=== PATIENT | male | born 1940 | race Caucasian/White ===

== ENCOUNTER → 2017-07-23 11:23 | Outpatient (CLI) | payer MEDICARE, SELFPAY ==
--- NOTE | 2017-07-23 11:23 | DT_ITS ---
This patient was seen during an EMR downtime July 20, 2017 - July 27, 2017. This patient may have a combination of paper and electronic documentation or all paper documentation. All documentation is viewable within the e-chart portion of Tier 3 for each patient visit.
[2017-07-28 05:29] LABS: ALB/GLOB Ratio 0.8 RATIO (0.9-2.4); AST(SGOT) 16 U/L (15-37); Alanine Aminotransfer ALT/SGPT 18 U/L (16-61); Albumin, Serum 3.3 g/dL (3.2-5.0); Alkaline Phosphatase 78 U/L (45-117); BUN 26 mg/dL (7-18); BUN/Creat Ratio 15.7 RATIO (10-20); Calcium,Total 8.8 mg/dL (8.5-10.1); Creatinine, Serum 1.66 mg/dL (0.70-1.30); EST Glomerular Filtration Rate 43 mL/min (>60); Est Glom Filt Rate - Afr Amer 52 mL/min (>60); Globulin 4.1 g/dL (2.2-4.2); Glucose 102 mg/dL (74-106); Phosphorus 2.7 mg/dL (2.5-4.9); Protein, Total 7.4 g/dL (6.4-8.2); Uric Acid 7.2 mg/dL (3.5-7.2)
[2017-07-28 05:30] LABS: Thyroid Stim Hormone (TSH) 1.77 uIU/mL (0.358-3.74)
[2017-07-28 06:09] LABS: Hematocrit 47.6 % (40-54); Mean Corp Hgb Conc 31.5 g/gl (32-36); Mean Corpuscular Hgb 30.5 pg (27.0-32.0); Mean Corpuscular Volume 96.7 fL (80-94); Red Blood Count 4.92 M/mm3 (4.6-6.2); White Blood Count 13.1 K/mm3 (4.4-11.0)
[2017-07-28 06:10] LABS: Absolute Lymphocyte Count 2.18 X10^3/ul (0.83-4.51); Absolute Neutrophil Count 9.5 X10^3/uL (2.0-7.7); Basophil# 0.03 X10^3/uL; Basophil% 0.2 % (0-1); Eosinophil# 0.39 X10^3/uL; Lymphocyte # 2.18 X10^3/ul (4.0); Lymphocyte % 16.6 % (19-41); Mean Platelet Vol. 10.3 fl (6.2-12.0); Monocyte# 0.99 X10^3/uL; Monocyte% 7.6 % (0-10); Neutrophil # 9.47 X10^3/uL (2.7-7.7); Neutrophil % 72.2 % (47-70); POSITIVE COUNT NO; POSITIVE DIFFERENTIAL NO; POSITIVE MORPHOLOGY NO; Platelet Count 268 K/mm3 (150-450); RBC Distribution Width CV 15.3 % (11.6-14.6); RBC Distribution Width SD 54.2 fl (35.1-43.9)
[2017-07-28 06:15] LABS: Anion Gap 9 (5-15); Chloride 103 mmol/L (98-107); Potassium 4.5 mmol/L (3.5-5.1); Sodium Level 142 mmol/L (136-145)
== END ==
PROVIDERS: PCP Family Medicine; Visit Provider Internal Medicine Nephrology
DX: N18.3 Chronic kidney disease, stage 3 (moderate) (principal)
CPT/HCPCS: 36415; 80053; 80061; 83970; 84100; 84443; 84550; 85025

== ENCOUNTER → 2018-02-01 14:06 | Outpatient (CLI) | payer MEDICARE, SELFPAY ==
[2018-02-01 15:23] LABS: Albumin, Serum 3.7 g/dL (3.2-5.0); BUN 33 mg/dL (7-18); BUN/Creat Ratio 23.1 RATIO (10-20); Calcium,Total 8.9 mg/dL (8.5-10.1); Chloride 105 mmol/L (98-107); Creatinine, Serum 1.43 mg/dL (0.70-1.30); EST Glomerular Filtration Rate 51 mL/min (>60); Est Glom Filt Rate - Afr Amer 62 mL/min (>60); Glucose 96 mg/dL (74-106); Phosphorus 3.7 mg/dL (2.5-4.9); Potassium 4.3 mmol/L (3.5-5.1); Sodium Level 139 mmol/L (136-145)
--- OUTSIDE RECORDS SUMMARY | 2018-05-06 06:04 | XMS RPT_ITS ---
:1940 Author Organization OHIP Care Team Providers Name Role Phone NUSRAT MCFADDEN Attending Unavailable MICHELLE THAO, DR. MARCELINO Gutierrez Primary Care Unavailable YUMIKO LICEA MD Attending Unavailable MICHELLE THAO, DR. MARCELINO Gutierrez Primary Care Unavailable ABDULAZIZ ESTRADA MD Attending Unavailable MICHELLE THAO, DR. MARCELINO Gutierrez Primary Care Unavailable ABDULAZIZ ESTRADA MD Attending Unavailable MICHELLE THAO, DR. MARCELINO Gutierrez Primary Care Unavailable Deb Armstrong Attending Unavailable Deb Armstrong Attending Unavailable PROBLEMS PROBLEMS DATE TYPE CONDITION / CODE ATTENDING STATUS SOURCE 08/12/2017 Unknown N18.3 - Chronic Deb Armstrong Active [place] kidney disease, [facility] stage 3 Hospital (moderate) / Repository N18.3(ICD-10) PROCEDURES PROCEDURES No Procedure Records FoundRESULTS RESULTS RENAL PROFILE Collected: 02/01/2018 Status: F Source: KAMALJIT 2:[address] [facility] REPOSITORY TYPE CODE TESTS RESULT OUT OF RANGE REFERENCE UNITS LAB L501.0100 74-106 mg/dL Normal GLU 96 Result Comment: Please note revised GLUCOSE reference range effective 2017. LAB L501.1000 7-18 mg/dL High BUN 33 LAB L501.1100 0.70-1.30 mg/dL High CREAT,SERUM 1.43 Result Comment: The validity of the calculated GFR AND GFRAA in patients over 70 years has not been determined. Clinical correlation is essential. LAB L501.1110 >60 mL/min Low EST GFR 51 Result Comment: Non- GFR Calc LAB L501.1115 >60 mL/min Normal EST GFR - AA 62 Result Comment: GFR Calc LAB L501.1300 10-20 RATIO High BUN/CRE 23.1 LAB L501.1800 3.2-5.0 g/dL Normal ALB 3.7 LAB L501.2200 8.5-10.1 mg/dL CA Normal 8.9 LAB L501.2300 2.5-4.9 mg/dL Normal PHOS 3.7 LAB L501.5300 136-145 mmol/L NA Normal 139 LAB L501.5600 3.5-5.1 mmol/L K Normal 4.3 LAB L501.5900 98-107 mmol/L CL Normal 105 LAB L501.6100 21.0-32.0 mmol/L Normal CO2 27.0 Performed By: #### L500.3600 #### [facility] [address] [place], [address] DOWNTIME REPORT Observed: 08/06/2017 Status: F Source: KAMALJIT 1:[address] [facility] REPOSITORY [facility] Medical Records Department [address] [place] [address] Downtime Report MR#: [id number] Acct: [id number] Name: MANDEEPMICHAEL Rep #: [id number] : 1940 77 From: Marcelino Salamanca PCP: Marcelino Martinez MD Status: REG CLI This patient was seen during an EMR downtime July 20, 2017 - July 27, 2017. This patient may have a combination of paper and electronic documentation or all paper documentation. All documentation is viewable within the e-chart portion of [employer] for each patient visit. CBC W/DIFF, AUTOMATED Collected: 07/23/2017 Status: F Source: KAMALJTI 11:[address] [facility] REPOSITORY Order Comment: DR ARMSTRONG ORDERED RENAL PTH CBC DR MARTINEZ ORDERED CBCD CMP LIPID TSH URIC ACID RESULT(S) PREVIOUSLY REPORTED ON MANUAL REQUISITION DURING DOWNTIME. TYPE CODE TESTS RESULT OUT OF RANGE REFERENCE UNITS LAB L100.1000 4.4-11.0 K/mm3 High WBC 13.1 LAB L100.1200 4.6-6.2 M/mm3 Normal RBC 4.92 LAB L100.1300 13.0-16.5 g/dl Normal HGB 15.0 LAB L100.1400 40-54 % Normal HCT 47.6 LAB L100.1500 80-94 fL High MCV 96.7 LAB L100.1600 27.0-32.0 pg Normal MCH 30.5 LAB L100.1700 32-36 g/gl Low MCHC 31.5 LAB L100.1810 11.6-14.6 % High RDW CV 15.3 LAB L100.1820 35.1-43.9 fl High RDW SD 54.2 LAB L100.1900 150-450 K/mm3 Normal PLT 268 LAB L100.2000 6.2-12.0 fl Normal MPV 10.3 LAB L100.2100 47-70 % High NEUT% 72.2 LAB L100.2200 19-41 % Low LY% 16.6 LAB L100.2300 0-10 % Normal MONO% 7.6 LAB L100.2400 0-5 % Normal EO% 3.0 LAB L100.2500 0-1 % Normal BASO% 0.2 LAB L100.2550 0.0-0.9 % Normal IM GRAN % 0.400 Result Comment: IG% - Immature Granulocytes (promyelocytes, myelocytes and metamyelocytes) > 1% indicates that a LEFT SHIFT is Present. LAB L100.2620 2.0-7.7 X10 3/uL High Absolute Neut 9.5 LAB L100.2720 0.83-4.51 X10 3/ul Normal Absolute Lymph 2.18 Performed By: #### L100.0100 #### [facility] [address] [place], [address] COMPREHENSIVE METABOLIC Collected: 07/23/2017 Status: F Source: KAMALJIT VERGARA 11:[address] [facility] REPOSITORY Order Comment: DR ARMSTRONG ORDERED RENAL PTH CBC DR MARTINEZ ORDERED CBCD CMP LIPID TSH URIC ACID RESULT(S) PREVIOUSLY REPORTED ON MANUAL REQUISITION DURING DOWNTIME. TYPE CODE TESTS RESULT OUT OF RANGE REFERENCE UNITS LAB L501.0100 74-106 mg/dL Normal GLU 102 Result Comment: Fasting Glucose result from 100 to 125 mg/dL suggests IMPAIRED HOMEOSTASIS per A.D.A. criteria. Please note revised GLUCOSE reference range effective 2017. LAB L501.1000 7-18 mg/dL High BUN 26 LAB L501.1100 0.70-1.30 mg/dL High CREAT,SERUM 1.66 Result Comment: The validity of the calculated GFR AND GFRAA in patients over 70 years has not been determined. Clinical correlation is essential. LAB L501.1110 >60 mL/min Low EST GFR 43 LAB L501.1115 >60 mL/min Low EST GFR - AA 52 LAB L501.1300 10-20 RATIO Normal BUN/CRE 15.7 LAB L501.1500 6.4-8.2 g/dL Normal T PROT 7.4 LAB L501.1800 3.2-5.0 g/dL Normal ALB 3.3 LAB L501.1950 2.2-4.2 g/dL Normal GLOB 4.1 LAB L501.2000 0.9-2.4 RATIO Low A/G 0.8 LAB L501.2200 8.5-10.1 mg/dL Normal CA 8.8 LAB L501.4100 15-37 U/L Normal AST 16 LAB L501.4305 45-117 U/L Normal ALK P 78 LAB L501.4405 16-61 U/L Normal ALT 18 LAB L501.4600 0.20-1.00 mg/dL Normal T BILI 0.60 LAB L501.5300 136-145 mmol/L Normal NA 142 LAB L501.5600 3.5-5.1 mmol/L Normal K 4.5 LAB L501.5900 98-107 mmol/L Normal CL 103 LAB L501.6100 21.0-32.0 mmol/L Normal CO2 30.0 LAB L501.6200 5-15 Normal GAP 9 Performed By: #### L500.4050, L501.1400, L501.2300, L501.9520 #### [facility] [address] [place], [address] URIC ACID Collected: 07/23/2017 Status: F Source: KAMALJIT 11:[address] [facility] REPOSITORY Order Comment: DR ARMSTRONG ORDERED RENAL PTH CBC DR MARTINEZ ORDERED CBCD CMP LIPID TSH URIC ACID RESULT(S) PREVIOUSLY REPORTED ON MANUAL REQUISITION DURING DOWNTIME. TYPE CODE TESTS RESULT OUT OF RANGE REFERENCE UNITS LAB L501.1400 3.5-7.2 mg/dL Normal URIC 7.2 Result Comment: The drugs N-Acetylcysteine and Metamizole may falsely depress this assay. Performed By: #### L500.4050, L501.1400, L501.2300, L501.9520 #### [facility] [address] [place], [address] PHOSPHORUS Collected: 07/23/2017 Status: F Source: KAMALJIT 11:[address] [facility] REPOSITORY Order Comment: DR ARMSTRONG ORDERED RENAL PTH CBC DR MARTINEZ ORDERED CBCD CMP LIPID TSH URIC ACID RESULT(S) PREVIOUSLY REPORTED ON MANUAL REQUISITION DURING DOWNTIME. TYPE CODE TESTS RESULT OUT OF RANGE REFERENCE UNITS LAB L501.2300 2.5-4.9 mg/dL Normal PHOS 2.7 Performed By: #### L500.4050, L501.1400, L501.2300, L501.9520 #### [facility] [address] [place], [address] THYROID STIM HORMONE Collected: 07/23/2017 Status: F Source: KAMALJIT (TSH) 11:[address] [facility] REPOSITORY Order Comment: DR ARMSTRONG ORDERED RENAL PTH CBC DR MARTINEZ ORDERED CBCD CMP LIPID TSH URIC ACID RESULT(S) PREVIOUSLY REPORTED ON MANUAL REQUISITION DURING DOWNTIME. TYPE CODE TESTS RESULT OUT OF RANGE REFERENCE UNITS LAB L501.9520 0.358-3.74 uIU/mL Normal TSH 1.77 Performed By: #### L500.4050, L501.1400, L501.2300, L501.9520 #### [facility] [address] [place], [address] PTHIN Collected: 07/23/2017 Status: F Source: KAMALJIT 11:[address] [facility] REPOSITORY Order Comment: DR ARMSTRONG ORDERED RENAL PTH CBC DR MARTINEZ ORDERED CBCD CMP LIPID TSH URIC ACID TYPE CODE TESTS RESULT OUT OF RANGE REFERENCE UNITS LAB L509.1000 18.4-80.1 pg/mL Normal PTHIN 69.0 Performed By: #### L509.1000 #### [facility] [address] [place], [address] VL CAROTID BILATERAL Observed: 05/19/2017 Status: F Source: [place] [employer] DUPLEX 8:48 AM [facility] REPOSITORY ORIGINAL Carotid duplex examination using B-mode, color flow and spectral Doppler CLINICAL STATEMENT: stenosis. COMPARISON: None Stenosis grading is reported using the following scheme, unless otherwise specified: Normal: No stenosis Mild: 1-49% stenosis Moderate: 50-69% stenosis Severe: 70-99% stenosis Occluded FINDINGS: Morphologically, the proximal right ICA is 65% stenotic. Morphologically, the proximal left ICA is 56% stenotic. Scattered areas of calcific and noncalcified plaque are noted. RIGHT SIDE: CCA PSV: 60 cm/s ICA PSV: 152 cm/s ICA/CCA ratio: 2.66 ECA PSV: 78 cm/s Vertebral artery: Antegrade Subclavian artery: Antegrade LEFT SIDE: CCA PSV: 70 cm/s ICA PSV: 192 cm/s ICA/CCA ratio: 2.75 ECA PSV: 73 cm/s Vertebral artery: Antegrade Subclavian artery: Antegrade IMPRESSION: Approximately 50-69% right ICA stenosis. Approximately 50-69% left ICA stenosis. Recommend follow-up CT angiogram of the carotid arteries for confirmation of degree of stenosis. I have personally reviewed the images of this examination and agree with the resident's findings and interpretation. Interpreted By: Michael Jerez MD Preliminary Report By: Noe Waters DO Electronically Signed By: Michael Jerez MD Dictated Date: 05/19/2017 10:01:25 AM Prelim Date: 05/19/2017 10:06:38 AM Sign Date: 05/19/2017 11:06:23 AM XR CHEST 2 VIEWS Observed: 04/21/2017 Status: F Source: [facility] 3:13 PM [facility] REPOSITORY ORIGINAL XR CHEST 2 VIEWS CLINICAL STATEMENT: copd, cough, chronic shortness of breath COMPARISON: 01/05/2006 FINDINGS:The heart is normal in size. There is redemonstration of hyperinflation of the lungs, consistent with chronic lung disease. Emphysematous changes are seen. There are increased interstitial lung markings, similar to the prior exam, likely fibrosis. Calcified granulomas are identified. No acute infiltrate, vascular congestion, pneumothorax or pleural effusion is seen. Degenerative changes are seen within the spine. IMPRESSION:Redemonstration of chronic lung disease. No acute process is identified. Interpreted By: Noa Shaw MD Preliminary Report By: Noa Shaw MD Electronically Signed By: Noa Shaw MD Dictated Date: 04/22/2017 8:50:05 AM Prelim Date: 04/22/2017 8:50:05 AM Sign Date: 04/22/2017 8:52:03 AM ALLERGIES ALLERGIES No Allergies Records FoundENCOUNTERS ENCOUNTERS ADMIT/DISCHARGE ACCOUNT NUMBER ADMITTING ENCOUNTER LOCATION SOURCE CLASS 02/01/2018 [id number] Ambulatory [facility] ding:POLAB3 Repository 07/23/2017 [id number] Ambulatory [facility] ding:POLAB3 Repository 05/19/2017/05/20/19 [id number] Ambulatory [address] ding:RAD Foundation Repository 05/06/2017 [id number] Ambulatory ABuilding:XR [facility] Repository 05/05/2017/05/06/19 [id number] Emergency BBuilding:ER [place] [address] [facility] Repository 04/21/2017/04/22/19 [id number] Ambulatory BBuilding:RA [place] [address] [address] [facility] Repository PAYERS PAYERS ENCOUNTER GUARANTOR PAYER SUBSCRIBER SOURCE 02/01/2018 [facility] [id number] S Insurance:[place]MANA [place] PPOPolicy [id number] [place] [address]Doo: Number: Repository [id number] (HP) Date:0926-46-05NH [address] [address]UC: 02/01/2018 Secondary NOT GIVENUNK [place] Insurance:SELF PAY [facility] Number: Effective Repository Date:2018-01-26 07/23/2017 [facility] [id number] S Insurance:HUMANA [place], [place] PPOPolicy [id number] [place] [address]Ice: Number: Repository [id number] (HP) Date:[id number] [address]NX: 07/23/2017 Secondary NOT GIVENUNK [place] Insurance:SELF PAY [facility] Number: Effective Repository Date:2017-07-23 05/19/2017 [facility] BRANNONDOB: Insurance:HUMANA GOLD BRANNONDOB: [facility] S CHOICE MEDICAREPolicy [id number] [facility], Number: [facility] [id number]: [id number] [place], [place] Date:2017-05-06 [address]Zxc: (330) (HP)Tel: [phone] [phone] (WP) Name:[facility] Box ()Tel: [phone], [place] [phone] (GB) [address]TR: 05/06/2017 [facility] BRANNONDOB: Insurance:HUMANA GOLD BRANNONDOB: [facility] S CHOICE MEDICAREPolicy [id number] Repository [facility], Number: [facility] [place] [address]Pcf: [id number] [place] Date:2017-05-0687719Sbi: (330) (HP)Tel: [phone] (WP) Name:NPO Box (HP)Tel: [phone] [place] [address] [phone] (WP) [phone]: 05/05/2017 MICHAEL Mook [facility] City[facility]OB: Insurance:HUMANA [employer] [facility] S CHOICE MEDICAREPolsioux center health [id number] [facility] [place], Number: [place] [address]Qyw: [id number] [place] Date:2017-05-0537149Ufj: (330) (HP)Tel: [phone] [phone] (WP) Name:NPO Box (HP)Tel: [phone] [place] [address] [phone] (WP) [phone]: 04/21/2017 [facility] BRANNONDOB: Insurance:HUMANA [employer] [facility] SERVICES[facility]: [facility] S CHOICE MEDICAREPolicy [id number] [facility] [place], Number: [place] [address]Lye: [id number] [place] Date:2017-04-2167650Dnu: (330) (HP)Tel: [phone] [phone] (WP) Name:NPO Box (HP)Tel: [phone], [place] [phone] (WP) [phone]:
== END ==
PROVIDERS: PCP Family Medicine; Visit Provider Internal Medicine Nephrology
DX: N18.3 Chronic kidney disease, stage 3 (moderate) (principal)
CPT/HCPCS: 36415; 80069

== ENCOUNTER → 2018-09-28 08:52 | Outpatient (CLI) | payer MEDICARE, SELFPAY ==
[2018-09-28 13:23] LABS: Albumin, Serum 3.3 g/dL (3.2-5.0); BUN 24 mg/dL (7-18); BUN/Creat Ratio 16.6 RATIO (10-20); Calcium,Total 9.3 mg/dL (8.5-10.1); Chloride 103 mmol/L (98-107); Creatinine, Serum 1.45 mg/dL (0.70-1.30); EST Glomerular Filtration Rate 50 mL/min (>60); Est Glom Filt Rate - Afr Amer 61 mL/min (>60); Glucose 102 mg/dL (74-106); Phosphorus 3.2 mg/dL (2.5-4.9); Potassium 4.1 mmol/L (3.5-5.1); Sodium Level 138 mmol/L (136-145)
[2018-09-28 13:34] LABS: PTHIN 54.8 pg/mL (18.4-80.1)
== END ==
PROVIDERS: PCP Family Medicine; Visit Provider Internal Medicine Nephrology
DX: N18.3 Chronic kidney disease, stage 3 (moderate) (principal)
CPT/HCPCS: 36415; 80069; 83970

== ENCOUNTER → 2019-08-08 09:04 | Outpatient (CLI) | payer MEDICARE, SELFPAY ==
[2019-08-08 12:24] LABS: Albumin, Serum 3.3 g/dL (3.2-5.0); BUN 27 mg/dL (7-18); BUN/Creat Ratio 16.6 RATIO (10-20); Calcium,Total 9.2 mg/dL (8.5-10.1); Chloride 102 mmol/L (98-107); Creatinine, Serum 1.63 mg/dL (0.70-1.30); EST Glomerular Filtration Rate 44 mL/min (>60); Est Glom Filt Rate - Afr Amer 53 mL/min (>60); Glucose 104 mg/dL (74-106); Phosphorus 3.1 mg/dL (2.5-4.9); Potassium 4.1 mmol/L (3.5-5.1); Sodium Level 139 mmol/L (136-145)
[2019-08-08 13:10] LABS: PTHIN 77.7 pg/mL (18.4-80.1)
== END ==
PROVIDERS: PCP Family Medicine; Visit Provider Internal Medicine Nephrology
DX: N18.3 Chronic kidney disease, stage 3 (moderate) (principal)
CPT/HCPCS: 36415; 80069; 83970

== ENCOUNTER 2019-11-23 10:31 | Day surgery (SDC) | payer MEDICARE, SELFPAY ==
[2019-11-23] VITALS (13 sets, daily range): BP systolic 119–168; BP diastolic 62–84; PULSE 55–64; RESP 16–18; TEMP 36.7–37.2; O2SAT 91–96
--- NOTE | 2019-11-23 | LUNB_PTH ---
PATIENT: MICHAEL KAUFMAN LOC: EN U#:[id number] AGE/SX: 79/M ROOM: RE11/23/[address]: Dr. Nomi Valdez MD : 1940 BED: DIS: 11/23/2019 SPEC #: [id number] RECD: 11/23/19 14:27 STATUS: MILIND JULIET #: [id number] TATIANA: 11/23/19 00:[address]: Nomi Valdez V DEPT: SURGICAL PATHOLOGY RECD BY: Madalyn Alonzo ENTERED: 11/24/19 09:43 SP TYPE: LUNG BX OTHR DR: Dr. Mann Escobar MD Tissues: Left upper lobe of lung, NOS Procedures: Surgery Specimen Level IV HEADER OPERATION: Bronchoscopy with fluoroscopy (MAC) PRE-OP DIAGNOSIS: Chest mass TISSUE SUBMITTED: MAK biopsy MICROSCOPIC DIAGNOSIS Left upper lobe mass, endobronchial biopsy: Poorly differentiated non-small cell carcinoma. See comment. RIYA:sean 11/25/19 COMMENT Immunohistochemistry ([id number]) supports the above diagnosis and non-contributory for differentiation between squamous cell carcinoma versus adenocarcinoma. Please also correlate with corresponding cytology ([id number]). Molecular studies on the tumor can be performed if clinically indicated. Please notify the laboratory if they are needed. Case has been reviewed in consultation with Dr. Jewell who concurs with the above diagnosis. IDC:RAMONE MICROSCOPIC DESCRIPTION Slides are reviewed. GROSS DESCRIPTION Received in fixative is one container labeled with the patient's name and designated endobronchial biopsy left upper lobe. The specimen consists of multiple irregular fragments of light brady soft tissue that in aggregate measure 1 x 0.5 x <0.1 cm. The specimen is totally submitted in one cassette. / AM:sean 11/24/19 TC:0 CPT: 52565 ADDENDUM ADDENDUM ADDENDUM ADDENDUM ADDENDUM ADDENDUM 01/03/2020 09:30 ADDENDUM 01/04/2020 10:33 ADDENDUM 01/03/2020 09:30 ADDENDUM 01/03/2020 09:30 ADDENDUM 01/03/2020 09:30 ADDENDUM 01/03/2020 09:30 PD-L1 (PopJaxUDA) IMMUNOHISTOCHEMICAL ANALYSIS FROM [facility] RESULTS: Tumor proportion score: <1% / Negative Please see complete report in e-chart or E[facility] SEQUENCING GENE FUSION PANEL FROM [employer] INTERPRETATION: NEGATIVE: No pathogenic gene fusions detected involving AKT1, ALK, BLAYNE, BRAF, CCND1, EGFR, FGFR1, FGFR2, FGFR3, MET, NRG1, NTRK1, NTRK2, NTRK3, PPARG, RAF1, RET, ROS1 or THADA. RESULTS: Tumor cellularity: 20-50% Please see complete report in e-chart or EMR
--- NOTE | 2019-11-23 | IMM_PTH ---
PATIENT: MICHAEL KAUFMAN LOC: EN U#:[id number] AGE/SX: 79/M ROOM: RE11/23/[address]: Dr. Nomi Valdez MD : 1940 BED: DIS: 11/23/2019 SPEC #: [id number] RECD: 11/25/19 11:55 STATUS: MILIND REQ #: [id number] TATIANA: 11/23/19 00:[address]: Nomi Valdez V DEPT: IMMUNOHISTOCHEMISTRY RECD BY: Brandie Merritt ENTERED: 11/25/19 11:57 SP TYPE: IMMUNO OTHR DR: Dr. Mann Escobar MD Tissues: Left upper lobe of lung, NOS Procedures: RCC (add) NAPSIN A (add) Yaya Ret (add) CK20 (add) CK5-6 (add) CK7 (add) CK8 (add) HEP PAR (add) TTF1 (add) Pankeratin (initial) P40 (add) PSAP (add) PHYSICIAN & INSTITUTION [address] [address] SPECIMEN INFORMATION: Tissue Source: Left upper lobe of lung, biopsy Clinical Info: Chest mass Specimen Number: [id number] CPT code: 01734, 40019 x11 METHODOLOGY: Deparaffinized sections of prefer/formalin-fixed tissue or PAP/DQ stained slides are incubated with monoclonal/polyclonal antibodies/oligonucleotide probes. Localization is made via biotin free immunoperoxidase method. Appropriate controls are performed and reacted as expected. Results on target cell population are indicated in the following table: RESULTS: ANTIBODY / CLONE RESULT AE1-3 (AE1/AE3/PCK26) positive CK7 (OV-TL12/30) positive CK8 (45oyckZ47) positive CK20 (KS20.8) negative TTF-1 (8G7G3/1) negative Napsin A (Rabbit Polyclonal) negative HepPar (OCh1E5) negative RCC (PN-15) negative PSAP (PASE/4LJ) negative CALRET (polyclonal) negative CK5-6 (D5 & 1684) negative P40 (BC28) positive, rare cells These tests were developed and their performance characteristics determined by [facility]. They may not have been cleared or approved by the U.S. Food and Drug Administration. The FDA has determined that such clearance or approval is not necessary. The above immunohistochemical/dualISH markers are ordered and reviewed by the Pathologist. INTERPRETATION: Left upper lobe of lung, biopsy: Poorly differentiated non-small cell carcinoma. See comment. SJ:sean 11/28/19 Comment: IHC profile is noncontributory for differentiation between squamous cell carcinoma versus adenocarcinoma. Case has been reviewed in consultation with Dr. Jewell who concurs with the above diagnosis. IDC:RAMONE
--- NOTE | 2019-11-23 | FLU_PTH ---
PATIENT: MICHAEL KAUFMAN LOC: EN U#:[id number] AGE/SX: 79/M ROOM: RE11/23/[address]: Dr. Nomi Valdez MD : 1940 BED: DIS: 11/23/2019 SPEC #: [id number] RECD: 11/23/19 14:27 STATUS: MILIND JULIET #: [id number] TATIANA: 11/23/19 00:[address]: Nomi Valdez V DEPT: CYTOLOGY RECD BY: Madalyn Alonzo ENTERED: 11/24/19 09:23 SP TYPE: Fluid OTHR DR: Dr. Mann Escobar MD Tissues: A - Lung, NOS B - Lung, NOS C - Lung, NOS Procedures: Special Stain Group II Surgery Specimen Level IV Cytospin Fluid HEADER OPERATION: Bronchoscopy with fluoroscopy (MAC) PRE-OP DIAGNOSIS: Chest mass TISSUE SUBMITTED: A - BAL MAK fluid for cytology, B - [place] left main, C - Slides x3 DIAGNOSIS CYTOLOGY A. MAK fluid, BAL for cytology (cytospin and cell block): Rare malignant cells present derived from non-small cell carcinoma. B. [place] left mainstem: Negative for malignant cells. C. MAK, brushing (smears): A few clusters of malignant cells present derived from non-small cell carcinoma. See comment. SJ:rg 11/25/19 COMMENT Please make reference to corresponding surgical specimen ([id number]) left upper lobe, endobronchial biopsy with diagnosis of non-small cell carcinoma. Case has been reviewed in consultation with Dr. Jewell who concurs with the above diagnosis. IDC:AM CYTOLOGY STUDY Slides are reviewed. CYTOLOGY GROSS A - Received is 22 ml of red turbid fluid labeled with the patient's name and and designated per the requisition as BAL MAK. Submitted for cytology preparation including cell block. B - Received is a metallic endoscopic cytobrush with adherent minute fragments of brady-red tissue brush in 2 ml of clear red fluid and labeled with the patient's name and and designated per the requisition as brush. The material is dislodged from the brush and submitted for cell block in one cassette. C - Received are three smears labeled with the patient's name and designated per the requisition as MAK. Submitted for staining. / sean 11/24/19 TC:0 CPT: 45349, 15904 x2, 56805
[2019-11-23] MEDS: Lactated Ringers 1,000 ML 100 ML IV (11:32)
[2019-11-23] MEDS: Lidocaine 2% Jelly 1 APPLIC Tube (12:49)
[2019-11-23] MEDS: Phenylephrine 0.25% 15 ML NASAL.SRY 15 SPRAY NASAL (12:55)
[2019-11-23] MEDS: 0.9% Normal Saline (Pres. free 10 ML Vial (12:55)
[2019-11-23] MEDS: Epinephrine (1 mg/ml) 1 MG/ML VIAL (13:14)
--- NOTE | 2019-11-23 13:22 | OP.BRONCH_ITS ---
Patient Name: Thom Conner Procedure Date: 11/23/2019 11:56 AM Date of : 1940 Age: 79 Procedure: Bronchoscopy Indications: Left mainstem mass Providers: Nomi Valdez MD Referring MD: Mann Escobar Medicines: Lidocaine 2% applied to the tracheobronchial tree 7 mL Complications: No immediate complications Procedure: Pre-Anesthesia Assessment: - Pre-procedure physical examination revealed no contraindications to sedation. After I obtained informed consent, the scope was passed under direct vision. Throughout the procedure, the patient's blood pressure, pulse, and oxygen saturations were monitored continuously. The bronchoscope was introduced through the left nostril and advanced to the right lung only. The total duration of the procedure was 4 hours and 12 minutes. Moderate Sedation: An independent trained observer was present and continuously monitored the patient. Findings: Left Lung Abnormalities: An area of acutely inflamed mucosa was found in the left mainstem bronchus. Edema was found in the left mainstem bronchus. A partially obstructing (about 70% obstructed) mass was found 1 cm from the bifurcation (kevin) in the left mainstem bronchus. The mass was large and bloody, smooth and submucosal. The lesion was not traversed. Brushings of a mass were obtained in the left mainstem bronchus with a cytology brush and sent for routine cytology. Five samples were obtained. Impression: - Left mainstem mass - Acute mucosal inflammation was visualized in the left mainstem bronchus. - Edema was present in the left mainstem bronchus. - A bloody, smooth and submucosal mass was found in the left mainstem bronchus. This lesion is likely malignant. - Brushings were obtained. Recommendation: - Await test results. Procedure Code(s): --- Professional --- 93500, Bronchoscopy, rigid or flexible, including fluoroscopic guidance, when performed; with brushing or protected brushings Diagnosis Code(s): --- Professional --- R91.8, Other nonspecific abnormal finding of lung field J20.9, Acute bronchitis, unspecified R09.89, Other specified symptoms and signs involving the circulatory and respiratory systems J98.9, Respiratory disorder, unspecified CPT copyright 2017 [employer]. All rights reserved. The codes documented in this report are preliminary and upon electronic organ technician review may be revised to meet current compliance requirements. MD Nomi Berg MD 11/23/2019 1:21:54 PM This report has been signed electronically. Number of Addenda: 0 Note Initiated On: 11/23/2019 11:56 AM
[2019-11-23 14:30] LABS: Cytology, Body Fluid / CSF SEE PATHOLOGY REPORT
[2019-11-23 18:01] LABS: Lymphocytes 11 %; Monocytes 2 %; Neutrophil (Segs) 30 %; Source- Body Fluid BRONCHIAL LAVAGE
[2019-11-23 18:02] LABS: Appearance/Body Fluid CLOUDY; Color/Body Fluid PINK
[2019-11-23 18:06] LABS: White Blood Count/Body Fluid 7 /mm3
[2019-11-23 18:07] LABS: Red Cell Count/Body Fluid 806 /mm3
[2019-11-23 18:10] LABS: Other Cell Type/BF 57 %
[2019-11-24 13:32] LABS: Pathologist Comment/Body Fluid Reviewed
== END 2019-11-23 15:39 | disposition home or self-care (01) ==
LOC: EN 10:32 → AC 10:33
PROVIDERS: Anesthesiology; PCP Family Medicine; Referring Provider Family Medicine; Visit Provider Internal Medicine Pulmonary Disease
PROC: 0BJ08ZZ Inspection of Tracheobronchial Tree, Via Natural or Artificial Opening Endoscopic (ICD-10-PCS; CPT 31622; principal; 2019-11-23 12:20)
DX: R91.8 Other nonspecific abnormal finding of lung field (principal); J44.0 Chronic obstructive pulmonary disease with (acute) lower respiratory infection; Z11.59 Encounter for screening for other viral diseases; Z79.899 Other long term (current) drug therapy; Z79.02 Long term (current) use of antithrombotics/antiplatelets; Z79.82 Long term (current) use of aspirin; Z87.891 Personal history of nicotine dependence; K21.9 Gastro-esophageal reflux disease without esophagitis; E78.00 Pure hypercholesterolemia, unspecified; I10 Essential (primary) hypertension
CPT/HCPCS: 31623; 87635; 88108; 88305; 88313; 88341; 88342; 89050; C9803; J7120; J2405; J3490; U0003

== ENCOUNTER → 2019-12-12 09:10 | Outpatient (CLI) | payer MEDICARE, SELFPAY ==
[2019-12-12 12:54] LABS: BUN 19 mg/dL (7-18); BUN/Creat Ratio 15.2 RATIO (10-20); Calcium,Total 9.2 mg/dL (8.5-10.1); Chloride 103 mmol/L (98-107); Creatinine, Serum 1.25 mg/dL (0.70-1.30); EST Glomerular Filtration Rate 59 mL/min (>60); Est Glom Filt Rate - Afr Amer 72 mL/min (>60); Glucose 104 mg/dL (74-106); Phosphorus 3.5 mg/dL (2.5-4.9); Potassium 4.1 mmol/L (3.5-5.1); Sodium Level 139 mmol/L (136-145)
== END ==
PROVIDERS: PCP Family Medicine; Visit Provider Internal Medicine Nephrology
DX: N18.31 Chronic kidney disease, stage 3a (principal)
CPT/HCPCS: 36415; 80069

== ENCOUNTER → 2019-12-13 15:05 | Outpatient (CLI) | payer MEDICARE, SELFPAY ==
--- NOTE | 2019-12-16 08:00 | PET_ITS ---
EXAMINATION: FDG PET-CT INDICATIONS: A 79-year-old male with history of carcinoma of the lung presenting for initial staging examination. COMPARISON EXAMINATION: None available INDEX LESION SIZE SUV INTERPRETATION Left thoracic perihilum, suprahilar regions, carinal level mediastinum 59.8 x 54.7-mm (largest) (frame 166) 14.2 (max) Fulfills quantitative criteria for viable neoplasm NON-INDEX LESION SIZE SUV INTERPRETATION Bilateral upper lung zones, linear 1.3 Quantitative criteria for viable neoplasm are not fulfilled TECHNIQUE: Following the intravenous administration of 14.0 mCi of F-18 deoxyglucose via the right antecubital fossa, multiplanar image acquisitions of the neck, chest, abdomen and pelvis to level of mid thigh, obtained at one hour post radiopharmaceutical administration contemporaneously interpreted with the current CT of the neck, chest, abdomen and pelvis, to level of mid thigh, dated 12/16/2019 via coregistration reveals: BLOOD GLUCOSE LEVEL:?? 101 mg/dl?HEIGHT:?70 inches?WEIGHT: 140 lbs. FINDINGS: 1. Increased glucose metabolism is identified in the left suprahilar-left hilar region extending medially to the mediastinum confluent in presentation, as well as a second nodular focus of increased glucose metabolism manifest in the carinal level mediastinum. The calculated maximal standard uptake value is 14.2. The maximal axial diameter of the corresponding metabolic, morphologic abnormality on review of CT of the chest dated 12/16/2019 is 59.8-mm (transverse) x 54.7-mm (AP). 2. Mild enhanced FDG distribution is defined in the bilateral upper lung zones registering a calculated maximal standard uptake value of 1.3. Quantitative criteria for viable neoplasm are not fulfilled. 3. Normal physiologic distribution of the radiopharmaceutical is apparent in the hepatic (2.4) and splenic parenchyma, both renal units, bladder and visualized intestinal tract. The visualized portion of the cerebral cortex, as well as cerebellar hemispheres demonstrate symmetric and preserved glucose metabolism. Diffuse radiopharmaceutical concentration is noted in all four quadrants of the abdomen and pelvis. Pertinent CT findings are as follows: CHEST: Emphysematous changes are noted in the bilateral upper-mid lung zones. Calcified and non-calcified parenchymal densities visualized in the right and left hemithorax demonstrate no evidence of quantitatively significant increased FDG concentration. Bilateral subcentimeter axillary and calcified, non-calcified mediastinal soft tissue is ametabolic. ABDOMEN AND PELVIS: Calcified granuloma formation is noted within the splenic parenchyma. There is atherosclerotic calcification defined in the abdominal aorta without evidence of dilatation-aneurysm formation. Abdominal-pelvic arterial calcification is observed. The right kidney is hypotrophic relative to the left renal unit. Colonic diverticulosis is encountered without evidence of diverticulitis. Right and left inguinal soft tissue densities with fatty hilus are ametabolic. Dystrophic calcification is manifest within the prostate gland without evidence of increased uptake. SKELETAL: Degenerative changes are noted in the cervical, thoracic and lumbar spine. PET/PET/CT Tumor Base -Thigh Init IMPRESSION: 1. ABNORMAL EXAMINATION INDICATIVE OF MALIGNANT VIABLE NEOPLASM. 2. Increased fluorine labeled GLUCOSE uptake noted in the left thoracic perihilum and suprahilar regions, the carinal level mediastinum in a single nodular focus fulfills quantitative criteria for viable neoplasm. (G[place] et al, Journal of Clinical Oncology 16:2142, 1998). 3. Linear increased tracer uptake observed in the bilateral apical lung zones do not fulfill quantitative criteria for viable neoplasm. (Cotton et al, Annals of Internal Medicine, 138:724, 2003). 4. No other quantitatively significant hypermetabolic abnormalities are noted. There is no definitive scintigraphic evidence of distant metastatic disease. Electronic Signature Qasim Live D.O. Accurate Quantification of SUVs for this report are calculated using the exclusive [employer]. Electronically Signed: Qasim Live DO at 17:04 EST Tel , Service support ,
== END ==
PROVIDERS: PCP Family Medicine; Referring Provider Internal Medicine Pulmonary Disease; Visit Provider Internal Medicine Pulmonary Disease
DX: R91.8 Other nonspecific abnormal finding of lung field (principal)
CPT/HCPCS: 78815; A9552

== ENCOUNTER 2019-12-24 10:35 | Emergency (ER) | payer MEDICARE, SELFPAY ==
[2019-12-24 10:36] VITALS: BP 147/78; PULSE 83; RESP 18; TEMP 36.6; O2SAT 95; BMI 19.8
[2019-12-24 11:01] VITALS: BP 154/71; PULSE 81; RESP 16; O2SAT 94
--- NOTE | 2019-12-24 11:18 | ED.VIS.GEN ---
History of Present Illness <Isma Palmdney - Last Filed: 12/24/19 15:36> Informant: Patient Onset: Days - 2 Context: Gradual Onset Timing: Continuous Associated Symptoms: vomiting Narrative: Patient states he is gradually progressively had trouble swallowing since 2 days ago. Begin with food, but he has eaten no meat recently and it did not start abruptly with any particular food. No foreign body ingestion or bones. Since last night, he has been unable to pass any liquids/water. He has never had this happen before. He feels like things are getting stuck before he vomits them back up, and he points to the area of the manubrium. 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 <Jhonny Ma - Last Filed: 12/24/19 15:58> Chief Complaint: General Illness Past Medical History <AydinIsma almarazdney - Last Filed: 12/24/19 15:36> Smoking Status: Former smoker <Jhonny Ma - Last Filed: 12/24/19 15:58> - Allergies and Home Meds Allergies/Adverse Reactions: Allergies No Known Allergies Allergy (Verified 12/24/19 10:38) Primary Care Physician: Mann Escobar MD [Primary Care Provider] - Nelson Garcia MD [STAFF PHYSICIAN] - 1 Week (call thursday for appt) Review of Systems General: Denies: Chills, Fever, Malaise, Sweats Eyes: Denies: Visual changes - bilaterally, Diplopia ENT: Denies: Rhinorrhea, Sore throat Cardiovascular: Denies: Chest pain, Palpitations Respiratory: Denies: Dyspnea, Cough Gastrointestinal: Reports: Vomiting. Denies: Abdominal pain, Nausea, Diarrhea, Melena, Hematochezia Genitourinary: Denies: Dysuria, Hematuria, Frequency Musculoskeletal: Denies: Myalgias, Back pain, Extremity Pain Skin: Denies: Rash, Wounds Neurological: Denies: Headache, Weakness, Numbness <Jhonny Ma - Last Filed: 12/24/19 15:58> Physical Exam Vital Signs/Narrative: Vital Signs Pulse Resp BP Pulse Ox 12/24/19 14:15 64 20 H 166/77 H 93 <Tawnya Palm - Last Filed: 12/24/19 15:36> Vital Signs/Narrative: Vital Signs Temp Pulse Resp BP Pulse Ox 12/24/19 11:01 81 16 154/71 H 94 12/24/19 10:36 97.9 F 83 18 147/78 H 95 Inital Vital Signs reviewed: Yes General: Well nourished, Well developed, No Acute Distress Head: Normocephalic, Atraumatic Eyes: Perrl, EOMI ENT: Moist mucous membranes, No rhinorrhea Neck: Supple, Nontender Cardiovascular: Regular rate, Regular rhythm, No murmurs. Negative for: Tachycardia Respiratory: No distress, CTA bilaterally - equal BS bilat, Chest nontender Abdomen: Soft, Nontender, Nondistended, Normal bowel sounds Back: Nontender, Normal Inspection Extremities: Nontender, No edema. Negative for: Calf Tenderness Skin: Normal color, No rash, No Trauma Neurological: Alert, Oriented x3, Cranial nerves II-XII grossly intact, Normal Strength, Normal Sensation Psychological: Normal affect, Normal Mood <Jhonny Ma - Last Filed: 12/24/19 15:58> Diagnostic/Tx/Re-eval Impressions Chest CT 12/24/19 11:19 IMPRESSION: 5.5 x 6.5 cm infiltrative left hilar mass consistent with known bronchogenic carcinoma. There is significant mediastinal invasion with encasement of the proximal descending thoracic aorta as well as the esophagus which is moderately dilated proximally and contains food material worrisome for esophageal obstruction. Correlation with barium swallow or endoscopy would be useful. Electronically Signed: Qasim Chun MD at 12:45 EST Tel , Service support , Soft Tissue Neck CT 12/24/19 11:19 IMPRESSION: Normal enhanced CT examination of the soft tissues of the neck. Suspect abnormality of the esophagus with a dilated esophagus containing food material. Electronically Signed: Qasim Chun MD at 12:37 EST Tel , Service support , 12/24/19 11:19 CT Chest [Chest WITH Contrast] [CT] Stat Soft Tissue Neck WITH Contrast [CT] Stat Laboratory Results 12/24/19 12/24/19 11:12 11:25 WBC 9.1 RBC 4.57 L Hgb 13.4 Hct 42.2 MCV 92.3 MCH 29.3 MCHC 31.8 L RDW Std Deviation 48.5 H RDW Coeff of Kellie 14.4 Plt Count 245 MPV 10.7 Immature Gran % (Auto) 0.300 Neut % (Auto) 62.9 Lymph % (Auto) 24.5 Wilkinson % (Auto) 10.4 H Eos % (Auto) 1.5 Baso % (Auto) 0.4 Absolute Neuts (auto) 5.7 Absolute Lymphs (auto) 2.22 Nucleated RBC % 0 Sodium 138 Potassium 4.6 Chloride 102 Carbon Dioxide 31.0 Anion Gap 5 BUN 23 H Creatinine 1.36 H Estim Creat Clear Calc 39.63 Est GFR (MDRD) Af Amer 65 Est GFR (MDRD) Non-Af 54 L BUN/Creatinine Ratio 16.9 Glucose 92 Calcium 9.3 - Medical Decision Making Given his cancer, CT of the neck and chest were obtained in order to evaluate the possibility of a related esophageal mass. There is no mass on CT, and as above, the findings are consistent with a food bolus obstructing the esophagus. Since he is unable to pass liquids, I discussed with Dr. Garcia who will perform urgent EGD and attempt to clear it. Patient is well with no symptoms and is dynamically stable and has been n.p.o. After the procedure, patient recovered and feels a lot better. He is tolerating oral fluids. <Jhonny Ma - Last Filed: 12/24/19 15:58> Procedures Procedure(s): Procedural sedation. Patient placed on 2 L nasal cannula, continuous telemetry monitoring and end-tidal CO2 monitoring. Patient is given an induction dose of 40 mg of IV propofol and then 10 mg aliquots. He received a total of 130 mg of propofol throughout the procedure. Patient has had 1 episode of apnea and desats to the 80s however he is switched to procedure mask and this resolves. No hypotension during procedure. No further complications. Patient monitored in the ER returns to baseline. <Tawnya Palm - Last Filed: 12/24/19 15:36> ED Disposition <Tawnya Palm - Last Filed: 12/24/19 15:36> <Jhonny Ma - Last Filed: 12/24/19 15:58> - Plan for ED Patient: Disposition: Home or Assisted Living Diagnosis: Esophageal obstruction due to food impaction Instructions: ED Diet Soft, ED Foreign Body Esophageal Rslv Referrals: Mann Escobar MD [Primary Care Provider] - Nelson Garcia MD [STAFF PHYSICIAN] - 1 Week (call thursday for appt) Additional Instructions: Soft diet/liquids only for the next 24 hours. Avoid meats for now.
--- NOTE | 2019-12-24 11:19 | CT_ITS ---
STUDY: CT CHEST WITH CONTRAST REASON FOR EXAM: Male, 79 years old. DIFFICULTY SWALLOWING X1 WEEK -- HX-LUNG CA W/ BRAIN METS -- HTN,COPD RADIATION DOSAGE (If Supplied By Facility): CTDIvol = ( 12.19 ) mGy, DLP = ( 682.18 ) mGycm TECHNIQUE: Transaxial imaging was performed following intravenous administration of IV 100mL Isovue-370. Individualized dose optimization techniques were used for this CT. COMPARISON: PET/CT 12/16/2019 FINDINGS: Moderate emphysematous changes. Moderate bilateral apical scarring. There is no demonstrated pleural abnormality. Normal heart and pericardium. Normal mediastinum. 5.5 x 6.5 cm necrotic infiltrative mass of the hilum of the left lung with significant mediastinal invasion consistent with bronchogenic carcinoma. Tumor is seen extending superiorly along the distal aortic arch with encasement of the proximal descending aorta with significant narrowing of the left mainstem bronchus and proximal upper lobe and lower lobe bronchi as well as the encasement or effacement of the mid thoracic esophagus. Proximal to this point, the esophagus is moderately dilated and contained contains food material. Correlation with barium swallow would be useful. Normal enhanced pulmonary arteries. Normal aorta arch and descending thoracic aorta. Normal osseous structures. Moderate right renal atrophy possibly from chronic renal artery stenosis. CT/Chest WITH Contrast IMPRESSION: 5.5 x 6.5 cm infiltrative left hilar mass consistent with known bronchogenic carcinoma. There is significant mediastinal invasion with encasement of the proximal descending thoracic aorta as well as the esophagus which is moderately dilated proximally and contains food material worrisome for esophageal obstruction. Correlation with barium swallow or endoscopy would be useful. Electronically Signed: Qasim Chun MD at 12:45 EST Tel , Service support ,
--- NOTE | 2019-12-24 11:19 | CT_ITS ---
STUDY: CT SOFT TISSUE NECK WITH CONTRAST REASON FOR EXAM: Male, 79 years old. DIFFICULTY SWALLOWING X1 WEEK -- HX-LUNG CA W/ BRAIN METS -- HTN,COPD RADIATION DOSAGE (If Supplied By Facility): CTDIvol = ( 12.19 ) mGy, DLP = ( 682.18 ) mGycm TECHNIQUE: The patient was scanned in a multi-detector CT scanner. High resolution transaxial imaging was performed following intravenous administration of IV 100mL Isovue-370. Sagittal and coronal images were reconstructed. Individualized dose optimization techniques were used for this CT. COMPARISON: None. FINDINGS: Normal bilateral parotid glands. Normal bilateral mobile plant operators spaces. Normal bilateral parapharyngeal spaces. Normal bilateral carotid spaces. Normal bilateral sublingual and submandibular glands and spaces. Normal visualized nasopharynx. Normal retropharyngeal space. Normal perivertebral space. Normal visualized bilateral faucial tonsils. The visualized tongue, tongue base and oropharynx are normal. The visualized cervical lymph nodes (levels I-) are within normal size limits, and maintain normal morphology. There is no demonstrated solid or cystic mass lesion. There is no abnormal contrast enhancement. Normal epiglottis, bilateral vallecula and hypopharynx. The pre-epiglottic and paraglottic adipose spaces are normal. Normal visualized bilateral piriform sinuses, aryepiglottic folds, vocal cords, and arytenoid-cricoid articulations. Normal subglottic trachea. The visualized the thoracic esophagus is dilated and contains food material suggestive of esophageal pathology. Normal bilateral lobes of the thyroid gland. Normal visualized pulmonary apices. Normal visualized paranasal sinuses. Normal visualized cervical spine. CT/Soft Tissue Neck WITH Contrast IMPRESSION: Normal enhanced CT examination of the soft tissues of the neck. Suspect abnormality of the esophagus with a dilated esophagus containing food material. Electronically Signed: Qasim Chun MD at 12:37 EST Tel , Service support ,
[2019-12-24 11:35] LABS: Absolute Lymphocyte Count 2.22 X10^3/uL (0.83-4.51); Absolute Neutrophil Count 5.7 X10^3/uL (2.0-7.7); Basophil# 0.04 X10^3/uL; Basophil% 0.4 % (0-1); Eosinophil# 0.14 X10^3/uL; Eosinophils% 1.5 % (0-5); Hematocrit 42.2 % (40-54); Hemoglobin 13.4 g/dL (13.0-16.5); Lymphocyte # 2.22 X10^3/ul (4.0); Lymphocyte % 24.5 % (19-41); Mean Corp Hgb Conc 31.8 g/dL (32-36); Mean Corpuscular Hgb 29.3 pg (27.0-32.0); Mean Corpuscular Volume 92.3 fL (80-94); Mean Platelet Vol. 10.7 fl (6.2-12.0); Monocyte# 0.94 X10^3/uL; Monocyte% 10.4 % (0-10); NRBC Flagged by Analyzer 0 % (0-5); Neutrophil # 5.69 X10^3/uL (2.7-7.7); Neutrophil % 62.9 % (47-70); Platelet Count 245 K/mm3 (150-450); RBC Distribution Width CV 14.4 % (11.6-14.6); RBC Distribution Width SD 48.5 fl (35.1-43.9); Red Blood Count 4.57 M/mm3 (4.6-6.2); White Blood Count 9.1 K/mm3 (4.4-11.0)
[2019-12-24 11:51] LABS: Anion Gap 5 (5-15); BUN 23 mg/dL (7-18); BUN/Creat Ratio 16.9 RATIO (10-20); Calcium,Total 9.3 mg/dL (8.5-10.1); Chloride 102 mmol/L (98-107); Creatinine, Serum 1.36 mg/dL (0.70-1.30); EST Glomerular Filtration Rate 54 mL/min (>60); Est Glom Filt Rate - Afr Amer 65 mL/min (>60); Estimated Creatinine Clearance 39.63 ml/min; Glucose 92 mg/dL (74-106); Potassium 4.6 mmol/L (3.5-5.1); Sodium Level 138 mmol/L (136-145)
[2019-12-24] MEDS: 0.9% Normal Saline 1,000 ML 150 ML IV (12:05)
--- NOTE | 2019-12-24 12:45 | ED.RN ---
Updated Niece via phone. Aware waiting for CT results
[2019-12-24 14:14] VITALS: BP 119/52; BP 131/57; BP 139/65; BP 140/77; BP 146/72; BP 153/74; BP 167/75; BP 190/114; PULSE 68; PULSE 69; PULSE 70; PULSE 71; PULSE 72; PULSE 73; PULSE 74; PULSE 75; PULSE 77; PULSE 80; PULSE 90; RESP 18; RESP 20; O2SAT 85; O2SAT 90; O2SAT 93; O2SAT 94; O2SAT 95; O2SAT 96; O2SAT 97; O2SAT 98
[2019-12-24 14:15] VITALS: BP 166/77; PULSE 64; RESP 20; O2SAT 93
--- NOTE | 2019-12-24 15:35 | OP.CCLET_ITS ---
12/24/2019 Mann Escobar Re : Upper GI endoscopy procedure for Thom Conner Dear Shawn This procedure was performed on Tuesday, December 24, 2019. My impressions and recommendations are as follows: Impressions : - Food in the upper third of the esophagus. Removal was successful. I was unable to push this food into the stomach. I used a Devlin net and remove the food in 3 separate passes. Photographs were obtained of the food. When I put the scope back down for the last time the esophagus was cleared. There was bruising in the mid esophagus but the scope passed easily through this. I believe that he should probably be on full liquids for at least a week before really trying to advance his diet. - Normal stomach. No specimens collected. - Normal examined duodenum. No specimens collected. Recommendations : - Discharge patient to home. - Full liquid diet. - Continue present medications. - Repeat upper endoscopy (date not yet determined) to evaluate the response to therapy. - Return to my office in 1 week. My findings are described in the full procedure note, which is enclosed. If I can be of further assistance, please feel free to contact me at Doctor phone number(s): , Fax: [phone], Work: . Sincerely, MD Nelson Nicholson MD 12/24/2019 3:34:38 PM This report has been signed electronically.
--- NOTE | 2019-12-24 15:35 | OP.EGD_ITS ---
Patient Name: Thom Conner Procedure Date: 12/24/2019 2:42 PM Date of : 1940 Age: 79 Procedure: Upper GI endoscopy Indications: Foreign body in the esophagus Providers: Nelson Garcia MD Medicines: See the Anesthesia note for documentation of the administered medications Patient Profile: This is a 79 year old male. Refer to note in patient chart for documentation of history and physical. Complications: No immediate complications. Procedure: Pre-Anesthesia Assessment: - Prior to the procedure, a History and Physical was performed, and patient medications and allergies were reviewed. The patient's tolerance of previous anesthesia was also reviewed. The risks and benefits of the procedure and the sedation options and risks were discussed with the patient. All questions were answered, and informed consent was obtained. Prior Anticoagulants: The patient has taken no previous anticoagulant or antiplatelet agents. ASA Grade Assessment: III - A patient with severe systemic disease. After reviewing the risks and benefits, the patient was deemed in satisfactory condition to undergo the procedure. After obtaining informed consent, the endoscope was passed under direct vision. Throughout the procedure, the patient's blood pressure, pulse, and oxygen saturations were monitored continuously. The Endoscope was introduced through the mouth, and advanced to the second part of duodenum. The upper GI endoscopy was accomplished without difficulty. The patient tolerated the procedure well. Scope In: 2:55:04 PM Scope Out: 3:17:34 PM Total Procedure Duration Time 0 hours 22 minutes 30 seconds Findings: Food was found in the upper third of the esophagus. Removal of food was accomplished. The entire examined stomach was normal. No biopsies or other specimens were collected for this exam. The examined duodenum was normal. No biopsies or other specimens were collected for this exam. Impression: - Food in the upper third of the esophagus. Removal was successful. I was unable to push this food into the stomach. I used a Devlin net and remove the food in 3 separate passes. Photographs were obtained of the food. When I put the scope back down for the last time the esophagus was cleared. There was bruising in the mid esophagus but the scope passed easily through this. I believe that he should probably be on full liquids for at least a week before really trying to advance his diet. - Normal stomach. No specimens collected. - Normal examined duodenum. No specimens collected. Recommendation: - Discharge patient to home. - Full liquid diet. - Continue present medications. - Repeat upper endoscopy (date not yet determined) to evaluate the response to therapy. - Return to my office in 1 week. Procedure Code(s): --- Professional --- 47190, Esophagogastroduodenoscopy, flexible, transoral; with removal of foreign body(s) Diagnosis Code(s): --- Professional --- T18.128A, Food in esophagus causing other injury, initial encounter T18.108A, Unspecified foreign body in esophagus causing other injury, initial encounter CPT copyright 2017 [employer] [employer]. All rights reserved. The codes documented in this report are preliminary and upon group managing director review may be revised to meet current compliance requirements. MD Nelson Nicholson MD 12/24/2019 3:34:38 PM This report has been signed electronically. Number of Addenda: 0 Note Initiated On: 12/24/2019 2:42 PM
[2019-12-24] MEDS: Propofol 200 MG/20 ML Vial IV BOLUS (15:48)
--- NOTE | 2019-12-24 15:53 | ED.RN ---
Notified niece procedure was compleed and pt was recovering well.
[2019-12-24 16:00] VITALS: BP 139/65; PULSE 70; RESP 27; O2SAT 91
[2019-12-24] MEDS: Acetaminophen 325 MG Tablet 650 MG PO (16:11)
[2019-12-24 16:31] VITALS: BP 139/65; PULSE 70; RESP 27; O2SAT 90
== END 2019-12-24 16:32 | disposition home or self-care (01) ==
PROVIDERS: Surgery; Emergency Provider Emergency Medicine; PCP Family Medicine
PROC: 0DJ08ZZ Inspection of Upper Intestinal Tract, Via Natural or Artificial Opening Endoscopic (ICD-10-PCS; CPT 43235; principal; 2019-12-24 14:30)
DX: T18.128A Food in esophagus causing other injury, initial encounter (principal); T18.108A Unspecified foreign body in esophagus causing other injury, initial encounter; C34.90 Malignant neoplasm of unspecified part of unspecified bronchus or lung; C79.31 Secondary malignant neoplasm of brain; I10 Essential (primary) hypertension; J44.9 Chronic obstructive pulmonary disease, unspecified
CPT/HCPCS: 43247; 70491; 71260; 80048; 85025; 96360; 96361; 99152; 99153; 99285; J7030; Q9967; A4216; J1610

== ENCOUNTER 2019-12-30 09:34 | Emergency (ER) | payer MEDICARE, SELFPAY ==
[2019-12-30 09:35] VITALS: BP 133/75; PULSE 64; RESP 20; TEMP 36.6; O2SAT 95; BMI 19.3
[2019-12-30 09:59] VITALS: BP 159/71; PULSE 61; RESP 16; O2SAT 94
[2019-12-30 10:16] VITALS: BP 159/91; PULSE 57; RESP 18; TEMP 36.6; O2SAT 99
--- NOTE | 2019-12-30 10:16 | EKG12_ITS ---
Test Reason : CP/SOB Blood Pressure : / mmHG Vent. Rate : 060 BPM Atrial Rate : 060 BPM P-R Int : 106 ms QRS Dur : 078 ms QT Int : 396 ms P-R-T Axes : 077 059 070 degrees QTc Int : 396 ms Sinus rhythm with short [place] Otherwise normal ECG Confirmed by VARGAS PINEDA, ARNOLDO ([id number]), editor in chief JOSE F CHRISTIANSON ([id number]) on 01/03/2020 8:38:47 AM Referred By: JANES Confirmed By:ARNOLDO KAYE MD
--- NOTE | 2019-12-30 10:23 | ED.VIS.GEN ---
History of Present Illness Chief Complaint: Shortness of Breath Informant: Patient Onset: Today Narrative: 79-year-old male with past medical history of hypertension, hyperlipidemia, CAD, cardiac stents, nonsmall cell lung cancer on chemotherapy and radiation presents with complaints of chest pain. He was sent in by his oncologist. He is being treated for a left lung tumor. He woke up this morning and now has pain in his right lower chest when he coughs or takes a deep breath. No radiation. No nausea, vomiting, or diaphoresis. No fever or chills. He has chronic intermittent shortness of breath and cough which is unchanged. Wears 2 L O2 at night. No hemoptysis. No loss of taste or smell, abdominal pain, nausea, vomiting, diarrhea, or urinary symptoms. He states he had a stress test 1 year ago which was normal. He said he was on aspirin/Plavix but it was discontinued 1 month ago. Denies recent leg pain or swelling, surgery or travel, or history of DVT/PE. Past Medical History - Allergies and Home Meds Allergies/Adverse Reactions: Allergies No Known Allergies Allergy (Verified 12/30/19 09:38) Primary Care Physician: Mann Escobar MD [Primary Care Provider] - Past Medical History: - - Hypertension, hyperlipidemia, CAD, cardiac stents, lung cancer on chemo/radiation Smoking Status: Former smoker Physical Exam Vital Signs/Narrative: Vital Signs Temp Pulse Resp BP Pulse Ox 12/30/19 09:59 61 16 159/71 H 94 12/30/19 09:35 98 F 64 20 H 133/75 H 95 General: Well nourished, Well developed, No Acute Distress Head: Normocephalic, Atraumatic Eyes: Perrl ENT: Moist mucous membranes, No rhinorrhea Neck: Supple, Nontender Cardiovascular: Regular rate, Regular rhythm, No murmurs Respiratory: No distress, Chest nontender, - - Diminished air sounds and mild expiratory wheezing bilaterally Abdomen: Soft, Nontender, Nondistended, Normal bowel sounds Back: Normal Inspection Extremities: Nontender, No edema Skin: Normal color, No rash Neurological: Alert, Oriented x3, Cranial nerves II-XII grossly intact Psychological: Normal affect, Normal Mood Diagnostic/Tx/Re-eval Clinical Impression(s) from Imaging Studies Chest CTA 12/30/19 10:49 IMPRESSION: Stable examination compared There is no evidence of pulmonary embolism. Electronically Signed: David Arellano, at 12:21 EST , Service support , Chest X-Ray 12/30/19 11:54 IMPRESSION: Hyperinflation and scarring of the upper lobes. Soft tissue mass in the region of the left hilum which was described on the prior CT scan. Electronically Signed: David Arellano, at 12:23 EST , Service support , Laboratory Data 12/30/19 12/30/19 12/30/19 10:20 10:20 10:20 WBC 10.6 RBC 4.49 L Hgb 13.1 Hct 42.1 MCV 93.8 MCH 29.2 MCHC 31.1 L RDW Std Deviation 51.1 H RDW Coeff of Kellie 14.7 H Plt Count 243 MPV 11.1 Immature Gran % (Auto) 0.700 Neut % (Auto) 77.3 H Lymph % (Auto) 16.3 L [place] % (Auto) 4.8 Eos % (Auto) 0.6 Baso % (Auto) 0.3 Absolute Neuts (auto) 8.2 H Absolute Lymphs (auto) 1.72 Nucleated RBC % 0 D-Dimer Quant (PE/DVT) 1.30 H* Sodium 137 Potassium 4.0 Chloride 102 Carbon Dioxide 33.0 H Anion Gap 2 L BUN 27 H Creatinine 1.22 Estim Creat Clear Calc 43.22 Est GFR (MDRD) Af Amer 74 Est GFR (MDRD) Non-Af 61 BUN/Creatinine Ratio 22.1 H Glucose 97 Calcium 8.8 Troponin I 0.017 - Rhythm Strip Rhythm Strip: Sinus Rhythm Rate: 60 - Medical Decision Making 79-year-old male with lung cancer on chemo and radiation presents with right chest pain that started this morning. He describes the pain as a soreness when he coughs or takes a deep breath. He appears well nontoxic. Vital signs within normal limits. O2 sat 94% or above. Heart is regular rate and rhythm with no murmurs. Lungs clear to auscultation. Abdominal exam is benign. Labs are unremarkable. Troponin negative. EKG is normal sinus rhythm with no ischemic changes. Chest x-ray shows no acute process. D-dimer was elevated, so CTA was obtained and is negative for PE or acute process. It notes known left lung tumor, no mets on CTA. Based his history and work-up I have low concern for ACS. He also had a normal stress test 1 year ago which is reassuring. At this time the etiology of his chest pain is unknown. Discussed return precautions including worsening chest pain or respiratory symptoms. He will follow up with his PCP and oncologist. He was agreeable and discharged home in stable condition. ED Disposition - Plan for ED Patient: Disposition: Home or Assisted Living Diagnosis: Chest pain of unknown etiology Instructions: ED Chest Pain NonCardiac Referrals: Mann Escobar MD [Primary Care Provider] -
[2019-12-30 10:36] LABS: Absolute Lymphocyte Count 1.72 X10^3/uL (0.83-4.51); Absolute Neutrophil Count 8.2 X10^3/uL (2.0-7.7); Basophil# 0.03 X10^3/uL; Basophil% 0.3 % (0-1); Eosinophil# 0.06 X10^3/uL; Eosinophils% 0.6 % (0-5); Hematocrit 42.1 % (40-54); Hemoglobin 13.1 g/dL (13.0-16.5); Lymphocyte # 1.72 X10^3/ul (4.0); Lymphocyte % 16.3 % (19-41); Mean Corp Hgb Conc 31.1 g/dL (32-36); Mean Corpuscular Hgb 29.2 pg (27.0-32.0); Mean Corpuscular Volume 93.8 fL (80-94); Mean Platelet Vol. 11.1 fl (6.2-12.0); Monocyte# 0.51 X10^3/uL; Monocyte% 4.8 % (0-10); NRBC Flagged by Analyzer 0 % (0-5); Neutrophil # 8.17 X10^3/uL (2.7-7.7); Neutrophil % 77.3 % (47-70); Platelet Count 243 K/mm3 (150-450); RBC Distribution Width CV 14.7 % (11.6-14.6); RBC Distribution Width SD 51.1 fl (35.1-43.9); Red Blood Count 4.49 M/mm3 (4.6-6.2); White Blood Count 10.6 K/mm3 (4.4-11.0)
[2019-12-30 10:48] LABS: Anion Gap 2 (5-15); BUN 27 mg/dL (7-18); BUN/Creat Ratio 22.1 RATIO (10-20); Calcium,Total 8.8 mg/dL (8.5-10.1); Chloride 102 mmol/L (98-107); Creatinine, Serum 1.22 mg/dL (0.70-1.30); EST Glomerular Filtration Rate 61 mL/min (>60); Est Glom Filt Rate - Afr Amer 74 mL/min (>60); Estimated Creatinine Clearance 43.22 ml/min; Glucose 97 mg/dL (74-106); Sodium Level 137 mmol/L (136-145)
--- NOTE | 2019-12-30 10:49 | CT_ITS ---
STUDY: CTA CHEST REASON FOR EXAM: Male, 79 years old. CHEST PAIN,DECREASED SAT''S HX-LEFT LUNG CA RADIATION DOSAGE (If Supplied By Facility): CTDIvol = ( 3.09 ) mGy, DLP = ( 161.31 ) mGycm TECHNIQUE: The examination was performed with the intravenous administration of IV 100mL [id number]. Post-processing of the angiographic images was performed, with multiplanar reformation and 3D reconstruction. Individualized dose optimization techniques were used for this CT. COMPARISON: Comparison is made with prior examination dated 12/24/2019. FINDINGS: Normal enhancement of the main pulmonary artery and right and left pulmonary arteries. Normal enhancement of the bilateral peripheral pulmonary arteries. There is no demonstrated pulmonary embolism. Normal thoracic aorta and visualized great vessels. There is no demonstrated aortic dissection. Normal heart and pericardium. Slightly enlarged mediastinal lymph nodes. Once again, there is a 5.5 cm x 6.5 cm soft tissue mass in the left hilar region with extension to the mediastinum with invasion into the subcarinal region. There is narrowing of the intermediate stem bronchus. There is also encasement of the mid thoracic esophagus. This is unchanged. Normal visualized trachea and bronchi. Hyperinflation. Emphysematous changes with bullous formation in both lungs worse in the upper lobes. Stable spiculated nodule in the posterior aspect of the right lung apex as well as in the posterolateral aspect the left upper lobe. Calcified granuloma in the posterior aspect of the right upper lobe. Normal pleura. Normal chest wall structures. There are degenerative changes of thoracic spine. There is a 2.4 cm rounded hypodensity in the mid posterior aspect of the left kidney. This may represent a cyst. There is evidence of hyperplasia of the adrenal glands bilaterally. CT/CTA Chest W/WO Contrast IMPRESSION: Stable examination compared There is no evidence of pulmonary embolism. Electronically Signed: David Arellano, at 12:21 EST , Service support ,
[2019-12-30] MEDS: Albuterol 2.5 MG/3 ML VIAL.NEB. INHALATION (10:50)
[2019-12-30 11:22] VITALS: BP 159/91; PULSE 60; RESP 18; O2SAT 99
--- NOTE | 2019-12-30 11:54 | RAD_ITS ---
STUDY: X-RAY CHEST REASON FOR EXAM: Male, 79 years old. COUGH TECHNIQUE: Single AP portable view of the chest. COMPARISON: None. FINDINGS: EKG electrodes are seen. Hyperinflation. Increased markings in the upper lobes suggestive of scarring. There is no demonstrated pleural abnormality. Normal size heart. No left hilar mass. Partially calcified granuloma in the right upper lobe. There is prominence of the pulmonary hilar arteries without peripheral pulmonary vascular congestion, suggesting pulmonary hypertension. There is atherosclerotic calcification of the aortic arch with tortuosity. There are diffuse degenerative changes of the visualized thoracic spine. Normal visualized ribs, clavicles, and shoulders. There is no demonstrated abnormality of the visualized soft tissue structures of the upper abdomen. RAD/Chest 1 View (Portable) IMPRESSION: Hyperinflation and scarring of the upper lobes. Soft tissue mass in the region of the left hilum which was described on the prior CT scan. Electronically Signed: David Arellano, at 12:23 EST , Service support ,
[2019-12-30 12:21] VITALS: BP 173/67; PULSE 68; RESP 20; O2SAT 98
[2019-12-30 14:01] VITALS: BP 156/82; PULSE 68; RESP 16; TEMP 36.8; O2SAT 97
== END 2019-12-30 14:07 | disposition home or self-care (01) ==
PROVIDERS: Emergency Provider Physician Assistant; PCP Family Medicine
DX: R07.9 Chest pain, unspecified (principal); I10 Essential (primary) hypertension; E78.5 Hyperlipidemia, unspecified; I25.10 Atherosclerotic heart disease of native coronary artery without angina pectoris; Z79.02 Long term (current) use of antithrombotics/antiplatelets; Z95.5 Presence of coronary angioplasty implant and graft; R05 Cough; C34.90 Malignant neoplasm of unspecified part of unspecified bronchus or lung
CPT/HCPCS: 71045; 71275; 80048; 84484; 85025; 85379; 93005; 99284; Q9967; A4216